=== PATIENT | female | born 2005 | race Asian ===

== ENCOUNTER 2025-02-15 21:31 | Emergency (ER) | payer SELFPAY ==
--- NOTE | ~2025-02-15 | CT_ITS ---
CLINICAL HISTORY: Rectal Pain; Purulent Discharge CT abdomen and pelvis with contrast Comparison: None provided Findings: The lung bases are clear. The gallbladder and solid organs are within normal limits. No renal stones. Large volume of stool is present within the distal large bowel and rectum. Visualized portions of the appendix are unremarkable. Urinary bladder and pelvic structures are within normal limits. The bones are intact. IMPRESSION: No acute findings. Large volume of stool throughout the distal large bowel and rectum, probable constipation. This document has been electronically signed by: Jelani Balderas MD, PHD on 02/16/2025 03:11:00
[2025-02-15 21:35] VITALS: BP 125/80; PULSE 72; O2SAT 98
[2025-02-15 21:41] VITALS: BP 122/68; PULSE 77; RESP 16; TEMP 35.8; O2SAT 98; BMI 21.8
[2025-02-15 22:00] VITALS: BP 122/68; PULSE 77; RESP 16; TEMP 35.8; O2SAT 98
--- NOTE | 2025-02-15 22:30 | ED.ABDPAIN ---
HPI - Abdominal Pain General Chief Complaint: Abdominal Pain Stated Complaint: [facility] [facility] student with AB pain 12/21 Time Seen by Provider: 02/15/25 22:30 Source: patient Mode of arrival: ambulatory Limitations: no limitations History of Present Illness ED Provider: Alan NGO HPI narrative: The patient is a 19-year-old female presenting to the ED via EMS reporting she attempted to move her bowels earlier this evening when she developed severe rectal pain described as an internal pressure which is worse with attempting to move her bowels or with movement. The patient denies associated fever/chills, nausea, vomiting, abdominal pain or recent trauma. The patient reports last successful bowel movement was completed yesterday without any discomfort. The patient reports pain makes it difficult to urinate however denies overt dysuria, denies associated hematuria , melena, or hematochezia. The patient denies any surgical abdominal history or history of similar previous symptoms. Related Data Previous Rx's ?Medication ?Instructions ?Recorded docusate sodium 100 mg capsule 100 mg PO BID #20 caps 02/16/25 (Colace) polyethylene glycol 3350 17 17 g PO BID #119 grams 02/16/25 gram/dose oral powder (Miralax) Allergies Allergy/AdvReac Type Severity Reaction Status Date / Time No Known Allergies Allergy Verified 02/15/25 21:49 Review of Systems Review of Systems Yes all other systems are reviewed and are negative PMFSH Social History Social History Smoked in Last 30 Days: No Use of substances other than those prescribed or required for medical reasons: No Advance Directives: No Advance Directives Information Provided: No Do you have a plan to hurt others: No Plan Physical Exam ED Vital Signs: Vital Signs - 24 hr 02/15/25 21:41 02/15/25 22:00 02/15/25 23:06 Temperature 96.5 F L 96.5 F L 98.4 F Pulse Rate 77 77 91 Respiratory Rate 16 16 16 Blood Pressure 122/68 122/68 122/72 Pulse Oximetry 98 98 100 Oxygen Delivery Method Room Air Room Air Room Air 02/16/25 03:45 Temperature 98.4 F Pulse Rate 78 Respiratory Rate 16 Blood Pressure 107/53 L Pulse Oximetry 97 Oxygen Delivery Method Room Air BMI result Body Mass Index 21.8 CONSTITUTIONAL: The patient appears in obvious discomfort, but otherwise non-toxic, well nourished and in no acute distress. Vital signs as documented. HEAD: Atraumatic, normocephalic. EYES: EOMs grossly intact, pupils equal, conjunctiva clear, no exudate. ENT: Nares patent, no discharge. Airway patent, no audible stridor, visible mucosa is pink and moist without noted lesions. NECK: Trachea is midline, no obvious masses or gross abnormalities. CHEST: Symmetric movement, normal appearance. LUNGS: LS present and CTAB, no w/r/r. Non-labored work of breathing. CARDIAC: Regular Rhythm, S1/S2 appreciated, no murmurs, rubs or gallops. ABDOMEN: Abdomen soft and non-tender x4 quadrants, no palpable masses or organomegaly. : External rectal exam reveals no hemorrhoids, fissures, obvious fistulas, or obvious abscess. There is purulent appearing discharge noted on the underwear and sanitary pad. Patient unable to tolerate ASHLEY secondary to pain. EXTREMITIES: Normal tone, moves all extremities spontaneously without reported pain. No obvious acute injury or deformity noted. NEURO: Alert and oriented x3, CN II-XII appear grossly intact. Cerebellar Functioning grossly intact. No obvious sensory or motor deficits. Speech clear and appropriate. PSYCH: normal affect, appropriate eye contact, fluid speech, with appropriate response to questioning. No reported suicidality or homicidality. SKIN: Warm, dry, color appropriate, normal turgor. No rashes noted. Medical Decision Making Medical Decision Making MDM Narrative: 11:21 PM 02/15/2025 (Ben NGO): The patient is a 19-year-old female presenting to the ED via EMS reporting she attempted to move her bowels earlier this evening when she developed severe rectal pain described as an internal pressure which is worse with attempting to move her bowels or with movement. The patient denies associated fever/chills, nausea, vomiting, abdominal pain or recent trauma. The patient reports last successful bowel movement was completed yesterday without any discomfort. The patient reports pain makes it difficult to urinate however denies overt dysuria, denies associated hematuria , melena, or hematochezia. The patient denies any surgical abdominal history or history of similar previous symptoms. On exam the patient's abdominal exam is benign, however patient appears in severe discomfort with moving about on the exam stretcher. External rectal exam reveals no obvious hemorrhoids, however patient is unaware and sanitary pattern noted to have a purulent appearing discharge. Patient unable to tolerate ASHLEY due to severe pain. The patient will be evaluated with basic laboratory workup, and we will obtain CT abdomen and pelvis to evaluate for proctitis, deep space abscess, or other acute process. Patient will be treated with Toradol and morphine and reassessed following pain control and imaging. 3:24 AM 02/16/2025 (Ben NGO): Patient's laboratory evaluation shows mild leukocytosis of 13.1 with neutrophilia, no evidence of clinically significant anemia, electrolyte abnormality, or MONTY. LFTs are unremarkable. Patient's urinalysis is negative for infection or . Patient's CT shows no acute intra-abdominal pathology, there is a significant stool burden. The patient appears markedly more comfortable following interventions in the ED, sleeping in no acute distress. We will prescribe MiraLax, Colace, and plan for discharge. Admission/Observation Consideration of admission/observation: Escalation of care including admission/observation considered Lab Data MDM Lab Attestation statement: I reviewed the patient's lab results. 02/15/25 23:04 02/15/25 23:04 Labs: Lab Results 02/15/25 02/16/25 Range/Units 23:04 00:07 WBC 13.1 H (4.8-10.8) X10*3/uL RBC 4.31 (4.20-5.50) X10*6/uL Hgb 12.4 (12.0-16.0) g/dl Hct 36.6 L (37.0-47.0) % MCV 84.9 (80.0-98.0) fL MCH 28.8 (27.0-33.0) pg MCHC 33.9 (31.0-35.0) g/dl RDW 11.9 (11.0-16.0) % Plt Count 233 (160-400) X10*3/uL MPV 10.5 (9.4-12.3) fL Immature Gran % (Auto) 0.4 (0.0-0.4) % Neut % (Auto) 86.0 H (45-73) % Lymph % (Auto) 8.7 L (20-40) % [place] % (Auto) 4.4 (2-11) % Eos % (Auto) 0.1 (0-4) % Baso % (Auto) 0.4 (0-2) % Lymph # (Auto) 1.1 L (1.2-4.9) X10*3/uL [place] # (Auto) 0.6 (0.1-1.2) X10*3/uL Eos # (Auto) 0.0 (0.0-0.4) X10*3/uL Baso # (Auto) 0.1 (0.0-0.2) X10*3/uL Abs Immat Gran (auto) 0.05 H (0.00-0.03) X10*3/uL Absolute Neuts (auto) 11.2 H (2.0-8.3) x10*3/uL Absolute Nucleated RBC 0.000 (0.0-0.012) X10*3/uL Nucleated RBC % (auto) 0.0 (0.0-0.2) /100WBC Sodium 140 (135-145) mmol/L Potassium 3.9 (3.3-5.1) mmol/L Chloride 103 (96-108) mmol/L Carbon Dioxide 24 (22-29) mmol/L Anion Gap 17 (12-20) BUN 13 (9-16) mg/dL Creatinine 0.80 (0.5-1.4) mg/dL Estim Creat Clear Calc 93.5 Estimated GFR > 60 Random Glucose 117 H (60-115) mg/dL Calcium 9.4 (8.4-10.2) mg/dL Total Bilirubin 0.4 (0.0-1.0) mg/dL AST 29 (5-31) U/L ALT 13 (0-31) U/L Alkaline Phosphatase 43 (39-117) U/L Total Protein 7.3 (6.5-8.0) g/dL Albumin 5.0 (3.5-5.0) g/dL Urine Color Yellow Urine Appearance Clear Urine pH 7.5 (5.0-9.0) Ur Specific [place] 1.010 (1.005-1.025) Urine Protein Negative (Neg-Trace) mg/dL Urine Glucose (UA) Negative (Negative) mg/dL Urine Ketones Negative (Negative) mg/dL Urine Blood Small (1+) H (Negative) Urine Nitrite Negative (Negative) Ur Leukocyte Esterase Negative (Negative) Urine RBC 0-2 (0-2) /HPF Urine WBC 0-5 (0-5) /HPF Ur Squamous Epith Cells 3-5 (0-2) /HPF Urine Bacteria Trace (None Seen) Hyaline Casts 0-2 (0-2) /LPF Urine Test NEGATIVE (NEGATIVE) Radiology Impression Discussion of test interpretation with radiology: I have reviewed the radiologist's reading. Radiologist Impression: CLINICAL HISTORY: Rectal Pain; Purulent Discharge CT abdomen and pelvis with contrast Comparison: None provided Findings: The lung bases are clear. The gallbladder and solid organs are within normal limits. No renal stones. Large volume of stool is present within the distal large bowel and rectum. Visualized portions of the appendix are unremarkable. Urinary bladder and pelvic structures are within normal limits. The bones are intact. IMPRESSION: No acute findings. Large volume of stool throughout the distal large bowel and rectum, probable constipation. This document has been electronically signed by: Jelani Balderas MD, PHD on 02/16/2025 03:11:00 Prescription Management I considered prescription management with: Pain Medication Medications Administered Discontinued Medications Generic Name Dose Route Start Last Admin Trade Name Freq PRN Reason Stop Dose Admin Sodium Chloride 1,000 mls @ 999 mls/hr 02/15/25 22:45 02/16/25 00:49 Ns IV 02/15/25 23:45 Infused .Q1H1M STEWART Infusion Iohexol 85 ml 02/16/25 00:50 02/16/25 00:50 Iohexol 350 Mg/Ml 100 Ml Infus..Btl IV 02/16/25 00:51 85 ml ONCE ONE Administration Ketorolac Tromethamine 15 mg 02/15/25 22:45 02/15/25 23:04 Ketorolac Tromethamine 30 Mg/Ml Vial IVPUSH 02/15/25 22:46 15 mg ONCE ONE Administration Morphine Sulfate 4 mg 02/15/25 22:45 02/15/25 23:04 Morphine Sulfate 4 Mg/Ml Cartridge IVPUSH 02/15/25 22:46 4 mg ONCE ONE Administration Protocol Discharge Plan Discharge Clinical Impression: Constipation Patient Disposition: Home, Self-Care Instructions: Constipation (ED), High Fiber Diet (ED) Additional Instructions: Thank you for choosing [facility] Emergency Department for your care today. Thankfully your laboratory evaluation, CT scan, and exam today are reassuring. There was no evidence of a bowel obstruction, bacterial infection, urinary tract infection, hemorrhoids, or other emergent cause for your symptoms. At this time there is no indication for admission to the hospital or continued ED observation, and it is safe to discharge you home. Your CT did show that your retaining a large amount of stool. Please take MiraLax and Colace as prescribed to help facilitate adequate bowel movements. Please read the attached information regarding high-fiber diets to reduce risk of recurrent constipation. You may take alternating (staggered) doses of ibuprofen 600mg and Tylenol 1000mg every 4 hours as needed for any additional pain. Please stay well hydrated and get plenty of rest. Please follow up with your primary care physician for re-evaluation, additional management of your symptoms, and continued preventative care. If you do not have a primary care physician, please call the [facility] at [phone] to establish a new primary care physician. While waiting to establish your new primary care physician, you can call our [facility] at [phone] for non-emergency needs. Please return to the emergency department if you develop a severe or sudden change in your symptoms, a fever over 100.4 that does not improve with Tylenol or Ibuprofen, recurrent vomiting, or any other new or worsening symptoms or concerns. Prescriptions: New polyethylene glycol 3350 [Miralax] 17 gram/dose powder 17 g PO BID Qty: 119 0RF docusate sodium [Colace] 100 mg capsule 100 mg PO BID Qty: 20 0RF Print Language: Malagasy
[2025-02-15 23:06] VITALS: BP 122/72; PULSE 91; RESP 16; TEMP 36.9; O2SAT 100
[2025-02-15 23:07] LABS: Hematocrit 36.6 % (37.0-47.0); Hemoglobin 12.4 g/dl (12.0-16.0); Imm Gran Abs Auto 0.05 X10*3/uL (0.00-0.03); Imm Gran Pct Auto 0.4 % (0.0-0.4); Lymphocytes Absolute Auto 1.1 X10*3/uL (1.2-4.9); MANUAL DIFF FLAG NO; Mean Corpuscular HGB Conc 33.9 g/dl (31.0-35.0); Mean Corpuscular Hemoglobin 28.8 pg (27.0-33.0); Mean Corpuscular Volume 84.9 fL (80.0-98.0); NRBC Abs Auto 0.000 X10*3/uL (0.0-0.012); NRBC Pct Auto 0.0 /100WBC (0.0-0.2); Platelet Count 233 X10*3/uL (160-400); Red Blood Count 4.31 X10*6/uL (4.20-5.50); White Blood Count 13.1 X10*3/uL (4.8-10.8)
[2025-02-15 23:28] LABS: Alanine Aminotransferase 13 U/L (0-31); Albumin Level 5.0 g/dL (3.5-5.0); Alkaline Phosphatase 43 U/L (39-117); Anion Gap 17 (12-20); Aspartate Amino Transferase 29 U/L (5-31); Blood Urea Nitrogen 13 mg/dL (9-16); Calcium 9.4 mg/dL (8.4-10.2); Carbon Dioxide 24 mmol/L (22-29); Chloride 103 mmol/L (96-108); Creatinine Clr Calc Pharmacy 93.5; Estimated Glomerular Filt Rate > 60; Potassium 3.9 mmol/L (3.3-5.1); Sodium 140 mmol/L (135-145); Total Protein 7.3 g/dL (6.5-8.0)
[2025-02-16 00:32] LABS: Appearance Urine Clear; Glucose Urine UA Negative (Negative); PH 7.5 (5.0-9.0); Specific Gravity - Urine 1.010 (1.005-1.025); UMIC TRIGGER UACC YES
[2025-02-16 00:34] LABS: UPreg QC Valid YES
[2025-02-16] MEDS: iohexoL 350 MG/ML 100 ML INFUS..BTL 85 ML IV (00:50)
[2025-02-16 03:45] VITALS: BP 107/53; PULSE 78; RESP 16; TEMP 36.9; O2SAT 97
[2025-02-16 04:15] VITALS: BP 107/53; PULSE 78; RESP 16; TEMP 36.9; O2SAT 97
== END 2025-02-16 04:36 | disposition home or self-care (01) ==
PROVIDERS: Physician Assistant; Emergency Provider Emergency Medicine
DX: K59.00 Constipation, unspecified (principal); R11.0 Nausea; R10.2 Pelvic and perineal pain; Z79.899 Other long term (current) drug therapy
CPT/HCPCS: 36415; 74177; 80053; 81001; 81025; 85025; 96361; 96374; 96375; 99284; 99285; J1885; J2270; Q9967

== ENCOUNTER → 2025-02-16 00:01 | Outpatient (BNV) | payer SELFPAY | PROVIDERS: Emergency Provider Emergency Medicine; Visit Provider General Practice | DX: K59.00 Constipation, unspecified (principal) | CPT/HCPCS: 74177 ==